=== PATIENT | female | born 1965 | race African-American/Black ===

== ENCOUNTER 2017-03-02 01:35 | Emergency (ER) | payer MEDICAID ==
[~2017-03-02] VITALS: Ht 162.6 cm; Wt 101.0 kg
[2017-03-02] MEDS ORDERED: MORPHINE SULFATE 4 MG/ML CPJ (NOT FOR IM USE) IV STA (02:18)
[2017-03-02] MEDS ORDERED: ONDANSETRON HCL 4MG/2ML VIAL IV STA (02:18)
[2017-03-02] MEDS ORDERED: PROPOFOL 200MG/20ML VIAL IV ONE (03:15)
[2017-03-02] MEDS ORDERED: SODIUM CHLORIDE 0.9% 1,000 ML IV ONE ×2 (03:15→04:30)
[2017-03-02] MEDS ORDERED: MORPHINE SULFATE 4 MG/ML CPJ (NOT FOR IM USE) IV ONE (05:15)
[2017-03-02 05:32] VITALS: BP 115/65
== END 2017-03-02 06:51 | disposition home or self-care (01) ==
LOC: ER 01:36
DX: S93.05XA Dislocation of left ankle joint, initial encounter (principal); S82.402A Unspecified fracture of shaft of left fibula, initial encounter for closed fracture; F12.10 Cannabis abuse, uncomplicated; F17.200 Nicotine dependence, unspecified, uncomplicated; Z88.1 Allergy status to other antibiotic agents; W19.XXXA Unspecified fall, initial encounter; Y93.89 Activity, other specified; Y99.8 Other external cause status; Y92.89 Other specified places as the place of occurrence of the external cause
CPT/HCPCS: 27840; 73610; 96361; 96374; 96375; 96376; 99152; 99285; J2270; J2405; J7030; Z7610; J2704